=== PATIENT | female | born 1975 | race Hispanic/Latino ===

== ENCOUNTER 2018-09-24 04:10 | Emergency (ER) | payer OTHER ==
[~2018-09-24] VITALS: Ht 165.1 cm; Wt 86.6 kg
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
[2018-09-24] MEDS ORDERED: ENALAPRILAT IV INJ 1.25 MG/ML VIAL IV STA (04:17)
[2018-09-24] MEDS ORDERED: SODIUM CHLORIDE 0.9% 1000ML 1,000 ML IV STA (04:17)
[2018-09-24] MEDS ORDERED: CLONIDINE HCL 0.1 MG TAB PO ONE (04:30)
[2018-09-24 04:55] LABS: BASOPHILS # (AUTO) 0.1 (0.0-0.1); BASOPHILS % 0.7 % (0.0-1.0); EOSINOPHILS # (AUTO) 0.2 (0.0-0.4); HEMATOCRIT 36.6 % (34.2-44.1); HEMOGLOBIN 12.9 g/dL (12.0-16.0); LYMPHOCYTES # (AUTO) 2.9 (1.0-3.2); LYMPHOCYTES % 26.7 % (18.0-39.1); MEAN CORPUSCULAR HEMOGLOBIN 28.9 pg (28-32); MEAN CORPUSCULAR HGB CONC 35.2 g/dL (31-35); MEAN CORPUSCULAR VOLUME 81.9 fL (81-99); MONOCYTES # (AUTO) 0.9 (0.2-0.8); MONOCYTES % 7.9 % (4.4-11.3); NEUTROPHILS # (AUTO) 6.7 (2.1-6.9); NEUTROPHILS % 62.2 % (38.7-80.0); PLATELET COUNT 296 x10e3/uL (140-360); RED BLOOD COUNT 4.47 x10e6/uL (3.6-5.1)
[2018-09-24 05:02] LABS: BILIRUBIN,URINE NEGATIVE (NEGATIVE); CLARITY,URINE CLEAR (CLEAR); COLOR,URINE YELLOW (YELLOW); KETONES,URINE NEGATIVE (NEGATIVE); LEUKOCYTE ESTERASE ,URINE NEGATIVE (NEGATIVE); NITRITE,URINE NEGATIVE (NEGATIVE); PROTEIN,URINE DIPSTICK 3+ (NEGATIVE); URINE UROBILINOGEN 0.2 mg/dL (0.2 - 1)
[2018-09-24 05:14] LABS: EPITHELIAL CELLS,URINE FEW /LPF; TRANSITIONAL EPI CELLS,URINE FEW; WBC,URINE (MAN) 0-5 /HPF (0-5)
[2018-09-24 05:15] LABS: BACTERIA,URINE MODERATE /HPF; YEAST,URINE FEW
[2018-09-24 05:16] LABS: ALBUMIN 2.6 g/dL (3.5-5.0); ALBUMIN/GLOBULIN RATIO 0.6 (0.8-2.0); ANION GAP 15.2 mmol/L (8-16); CREATININE, SERUM 2.56 mg/dL (0.57-1.11); MAGNESIUM 2.4 MG/DL (1.3-2.1); POTASSIUM 4.2 mmol/L (3.5-5.1)
[2018-09-24] MEDS ORDERED: INSULIN DETEMIR 100 UNIT/ML PEN SQ ONE (05:30)
[2018-09-24] MEDS ORDERED: INSULIN REGULAR, HUMAN 100 UNIT/1 ML 3ML VIAL IV ONE (05:30)
[2018-09-24] MEDS ORDERED: INSULIN GLARGINE 100 UNITS/ML ML SQ SCH (05:45)
[2018-09-24 06:40] VITALS: BP 120/69
[2018-09-24] MEDS ORDERED: IBUPROFEN 200 MG TAB PO STA (06:53)
[2018-09-24] MEDS ORDERED: HYDROCODONE/APAP 5MG-325MG TAB PO ONE (07:00)
[2018-09-24] MEDS ORDERED: ONDANSETRON HCL 4 MG ORAL DISINTEGRATING TAB PO ONE (07:00)
--- NOTE | 2018-09-24 07:02 | NUR ---
PATIENT STATES PAIN TO BILATERAL LOWER EXTREMITIES, ALL PEDAL PULSES STRONG BILATERALLY.
--- NOTE | 2018-09-24 07:25 | NUR ---
WALKING ROUNDS WITH DORINA RN
== END 2018-09-24 07:35 | disposition home or self-care (01) ==
LOC: ER 04:10
DX: E11.65 Type 2 diabetes mellitus with hyperglycemia (principal); I10 Essential (primary) hypertension; N18.9 Chronic kidney disease, unspecified
CPT/HCPCS: 36415; 80053; 81001; 82948; 83735; 85025; 93005; 99284; J1815; J1817; J7030; Q0162

== ENCOUNTER 2024-06-30 14:00 | Emergency (ER) | payer BC, MEDICARE, OTHER ==
[~2024-06-30] VITALS: Ht 165.1 cm; Wt 101.2 kg
[~2024-06-30 14:00] MED LIST: ATORVASTATIN CA40 MG PO; CALCITRIOL0.5 MCG PO; CARVEDILOL25 MG PO; DICYCLOMINE HCL20 MG PO; FUROSEMIDE80 MG PO; MAG-OXIDE400 MG PO; NOVOLIN SQ; PANTOPRAZOLE SO40 MG PO; SEVELAMER CARB800 MG PO
[2024-06-30 14:38] LABS: BASOPHILS # (AUTO) 0.1 (0.0-0.1); BASOPHILS % 0.9 % (0.0-1.0); EOSINOPHILS # (AUTO) 0.3 (0.0-0.4); EOSINOPHILS % 2.5 % (0.0-6.0); HEMOGLOBIN 14.1 g/dL (12.0-16.0); LYMPHOCYTES # (AUTO) 3.8 (1.0-3.2); LYMPHOCYTES % 30.4 % (18.0-39.1); MEAN CORPUSCULAR HEMOGLOBIN 32.1 pg (28-32); MEAN CORPUSCULAR HGB CONC 32.8 g/dL (31-35); MEAN CORPUSCULAR VOLUME 97.9 fL (81-99); MONOCYTES % 8.2 % (4.4-11.3); NEUTROPHILS # (AUTO) 7.2 (2.1-6.9); NEUTROPHILS % 57.6 % (38.7-80.0); PLATELET COUNT 244 x10e3/uL (140-360); RED BLOOD COUNT 4.39 x10e6/uL (3.6-5.1); RED CELL DISTRIBUTION WIDTH 13.7 % (11.7-14.4); WHITE BLOOD COUNT 12.56 x10e3/uL (4.8-10.8)
[2024-06-30 14:47] LABS: ANION GAP 23.5 mmol/L (8-16); CALCIUM 10.2 mg/dL (8.4-10.2); CREATININE, SERUM 14.64 mg/dL (0.57-1.11); POTASSIUM 3.5 mmol/L (3.5-5.1)
[2024-06-30 15:25] VITALS: BP 104/62; PULSE 97
[2024-06-30] MEDS: SODIUM CHLORIDE 0.9% 500ML 500 ML IV STA (15:28)
[2024-06-30 17:00] VITALS: PULSE 93; RESP 16; TEMP 98.2; O2SAT 97
== END 2024-06-30 17:25 | disposition home or self-care (01) ==
LOC: ER 14:37
DX: R11.0 Nausea (principal); E86.0 Dehydration; R51.9 Headache, unspecified; I12.0 Hypertensive chronic kidney disease with stage 5 chronic kidney disease or end stage renal disease; E11.22 Type 2 diabetes mellitus with diabetic chronic kidney disease; E11.65 Type 2 diabetes mellitus with hyperglycemia; N18.6 End stage renal disease; Z99.2 Dependence on renal dialysis; E78.5 Hyperlipidemia, unspecified; R94.31 Abnormal electrocardiogram [ECG] [EKG]
CPT/HCPCS: 36415; 71045; 80048; 85025; 93005; 99284; J7040

== ENCOUNTER 2024-09-13 10:07 | Inpatient (IN) | payer MEDICARE ==
[~2024-09-13] VITALS: Ht 165.1 cm; Wt 99.8 kg
[2024-09-13 10:17] VITALS: TEMP 98.2
[2024-09-13 10:47] LABS: BASOPHILS # (AUTO) 0.1 (0.0-0.1); BASOPHILS % 0.5 % (0.0-1.0); EOSINOPHILS # (AUTO) 0.1 (0.0-0.4); EOSINOPHILS % 0.7 % (0.0-6.0); HEMATOCRIT 35.9 % (34.2-44.1); HEMOGLOBIN 11.3 g/dL (12.0-16.0); LYMPHOCYTES # (AUTO) 1.5 (1.0-3.2); LYMPHOCYTES % 10.1 % (18.0-39.1); MEAN CORPUSCULAR HEMOGLOBIN 31.9 pg (28-32); MEAN CORPUSCULAR HGB CONC 31.5 g/dL (31-35); MEAN CORPUSCULAR VOLUME 101.4 fL (81-99); MONOCYTES # (AUTO) 0.8 (0.2-0.8); NEUTROPHILS # (AUTO) 12.5 (2.1-6.9); NEUTROPHILS % 83.4 % (38.7-80.0); PLATELET COUNT 225 x10e3/uL (140-360); RED BLOOD COUNT 3.54 x10e6/uL (3.6-5.1); RED CELL DISTRIBUTION WIDTH 12.5 % (11.7-14.4); WHITE BLOOD COUNT 15.03 x10e3/uL (4.8-10.8)
[2024-09-13] MEDS: ONDANSETRON HCL INJ 2MG/ML 2ML 2 MG/ML VIAL IV STA (10:56)
[2024-09-13] MEDS: SODIUM CHLORIDE 0.9% 500ML 500 ML IV ONE (10:56)
[2024-09-13 11:22] LABS: ALANINE AMINOTRANSFERASE 16 IU/L (0-55); ALBUMIN 3.5 g/dL (3.5-5.0); ALBUMIN/GLOBULIN RATIO 0.8 (0.8-2.0); ALKALINE PHOSPHATASE 96 IU/L (40-150); ANION GAP 20.3 mmol/L (8-16); BILIRUBIN,TOTAL 1.1 mg/dL (0.2-1.2); BLOOD UREA NITROGEN 50 mg/dL (7-26); BUN/CREATININE RATIO 4 (6-25); CALCIUM 9.3 mg/dL (8.4-10.2); CARBON DIOXIDE 23 mmol/L (22-29); CHLORIDE 102 mmol/L (98-107); CREATININE, SERUM 13.87 mg/dL (0.57-1.11); EST GLOMERULAR FILTRATION RATE 3 ML/MIN (>=60); GLUCOSE 197 mg/dL (74-118); LIPASE 367 U/L (8-78); POTASSIUM 4.3 mmol/L (3.5-5.1); SODIUM 141 mmol/L (136-145); TOTAL PROTEIN 7.7 g/dL (6.5-8.1)
[2024-09-13] MEDS: Morphine 4mg INJECTION 4 MG/ML INJ IV ONE (12:01)
[2024-09-13 14:05] LABS: BILIRUBIN,URINE SMALL (NEGATIVE); CLARITY,URINE CLOUDY (CLEAR); COLOR,URINE YELLOW (YELLOW); GLUCOSE, URINE NEGATIVE (NEGATIVE); KETONES,URINE TRACE (NEGATIVE); LEUKOCYTE ESTERASE ,URINE MODERATE (NEGATIVE); NITRITE,URINE NEGATIVE (NEGATIVE); PH,URINE 7.5 (5 - 7); PROTEIN,URINE DIPSTICK >=300 (NEGATIVE); URINE UROBILINOGEN 0.2 mg/dL (0.2 - 1)
[2024-09-13 14:06] LABS: BACTERIA,URINE MANY /HPF; EPITHELIAL CELLS,URINE FEW /LPF; RBC,URINE >50 /HPF (0-5); WBC,URINE (MAN) >50 /HPF (0-5)
[2024-09-13] MEDS ORDERED: SODIUM CHLORIDE FLUSH 10 ML SYR INJ PRN (15:15)
[2024-09-13] MEDS: NIFEDIPINE CR 30 MG TAB PO SCH (15:30)
[2024-09-13] MEDS ORDERED: MAGNESIUM OXID400 M1 PO (15:36)
[2024-09-13] MEDS ORDERED: RENA-VITE TABL0.8 MG PO (15:37)
[2024-09-13 15:44] VITALS: PULSE 92; RESP 16
[2024-09-13] MEDS ORDERED: TRESIBA FL200 UNIT/1 (15:48)
[2024-09-13] MEDS ORDERED: OZEMPIC1 MG/0.71 (15:48)
[2024-09-13] MEDS ORDERED: NOVOLOG100 UNITS1 (15:49)
[2024-09-13 16:35] VITALS: BP 159/76; PULSE 94; RESP 17; TEMP 98.3; O2SAT 100
[2024-09-13 18:14] VITALS: BP 159/76; PULSE 94; RESP 17; TEMP 98.3; O2SAT 100
[2024-09-13 19:09] LABS: FERRITIN 1000.14 ng/mL (4.63-204.00)
[2024-09-13 19:26] LABS: FOLATE 15.6 ng/mL (7.0-15.4)
[2024-09-13 20:00] VITALS: BP 162/68; PULSE 94; RESP 18; TEMP 98.5; O2SAT 97
[2024-09-13] MEDS: TAMSULOSIN HCL 0.4 MG CAP PO SCH (20:55)
[2024-09-13 21:00] VITALS: BP 162/68; PULSE 94; RESP 18; TEMP 98.2; O2SAT 98
[2024-09-13] MEDS ORDERED: FAMOTIDINE 20 MG TAB PO PRN (21:30)
[2024-09-13] MEDS: SODIUM CHLORIDE 0.9% 1000ML 1,000 ML IV SCH (21:30)
[2024-09-13] MEDS ORDERED: HYDRALAZINE HCL 20 MG/ML VIAL IV PRN (21:30)
[2024-09-13] MEDS ORDERED: ACETAMINOPHEN 325 MG TAB PO PRN (21:30)
[2024-09-13] MEDS ORDERED: MELATONIN 5 MG TABLET PO PRN (21:30)
[2024-09-14] VITALS (9 sets, daily range): BP systolic 109–158; BP diastolic 58–84; PULSE 88–94; RESP 16–20; TEMP 98.2–98.8; O2SAT 95–100
[2024-09-14 06:59] LABS: BASOPHILS # (AUTO) 0.1 (0.0-0.1); BASOPHILS % 0.7 % (0.0-1.0); EOSINOPHILS # (AUTO) 0.4 (0.0-0.4); EOSINOPHILS % 3.5 % (0.0-6.0); HEMATOCRIT 31.5 % (34.2-44.1); HEMOGLOBIN 9.8 g/dL (12.0-16.0); LYMPHOCYTES # (AUTO) 3.1 (1.0-3.2); LYMPHOCYTES % 29.7 % (18.0-39.1); MEAN CORPUSCULAR HGB CONC 31.1 g/dL (31-35); MEAN CORPUSCULAR VOLUME 102.9 fL (81-99); MONOCYTES % 9.6 % (4.4-11.3); NEUTROPHILS # (AUTO) 5.9 (2.1-6.9); NEUTROPHILS % 56.2 % (38.7-80.0); PLATELET COUNT 211 x10e3/uL (140-360); RED BLOOD COUNT 3.06 x10e6/uL (3.6-5.1); RED CELL DISTRIBUTION WIDTH 12.6 % (11.7-14.4); WHITE BLOOD COUNT 10.47 x10e3/uL (4.8-10.8)
[2024-09-14 07:36] LABS: ALBUMIN 3.1 g/dL (3.5-5.0); ALBUMIN/GLOBULIN RATIO 0.9 (0.8-2.0); ANION GAP 18.9 mmol/L (8-16); CALCIUM 8.9 mg/dL (8.4-10.2); CREATININE, SERUM 13.48 mg/dL (0.57-1.11); POTASSIUM 3.9 mmol/L (3.5-5.1); TOTAL PROTEIN 6.6 g/dL (6.5-8.1)
[2024-09-14] MEDS ORDERED: TAMSULOSIN HCL 0.4 MG CAP PO SCH (09:00)
[2024-09-14] MEDS: INSULIN GLARGINE 100 UNITS/ML VIAL SQ SCH (09:58)
[2024-09-14] MEDS: GENTAMICIN SULFATE 15 GM CR TP SCH (10:56)
[2024-09-14] MEDS ORDERED: INSULIN ASPART 70/30 100 UNITS/ML VIAL SC SCH (12:00)
[2024-09-14] MEDS: INSULIN ASPART 70/30 100 UNITS/ML VIAL SC SCH (12:21)
[2024-09-14] MEDS: Morphine 4mg INJECTION 4 MG/ML INJ IV PRN (14:40)
[2024-09-14] MEDS: ONDANSETRON HCL INJ 2MG/ML 2ML 2 MG/ML VIAL IV PRN (15:24)
[2024-09-14] MEDS: SEVELAMER CARBONATE 800 MG TAB PO SCH (17:19)
[2024-09-14] MEDS: ATORVASTATIN 40 MG TAB PO SCH (20:34)
[2024-09-15 04:00] VITALS: BP 116/62; PULSE 89; RESP 18; TEMP 97.8; O2SAT 100
[2024-09-15 05:13] LABS: HEPATITIS B SURFACE AG (P) Negative (Negative)
[2024-09-15 05:56] LABS: BASOPHILS # (AUTO) 0.1 (0.0-0.1); BASOPHILS % 0.4 % (0.0-1.0); EOSINOPHILS # (AUTO) 0.3 (0.0-0.4); EOSINOPHILS % 2.9 % (0.0-6.0); HEMATOCRIT 28.8 % (34.2-44.1); HEMOGLOBIN 9.7 g/dL (12.0-16.0); LYMPHOCYTES # (AUTO) 2.3 (1.0-3.2); LYMPHOCYTES % 20.6 % (18.0-39.1); MEAN CORPUSCULAR HEMOGLOBIN 32.7 pg (28-32); MEAN CORPUSCULAR HGB CONC 33.7 g/dL (31-35); MONOCYTES % 9.2 % (4.4-11.3); NEUTROPHILS # (AUTO) 7.5 (2.1-6.9); NEUTROPHILS % 66.5 % (38.7-80.0); PLATELET COUNT 208 x10e3/uL (140-360); RED BLOOD COUNT 2.97 x10e6/uL (3.6-5.1); RED CELL DISTRIBUTION WIDTH 12.9 % (11.7-14.4); WHITE BLOOD COUNT 11.21 x10e3/uL (4.8-10.8)
[2024-09-15 06:32] LABS: ALBUMIN/GLOBULIN RATIO 0.9 (0.8-2.0); BILIRUBIN,TOTAL 0.7 mg/dL (0.2-1.2); CALCIUM 8.6 mg/dL (8.4-10.2); CREATININE, SERUM 13.43 mg/dL (0.57-1.11); TOTAL PROTEIN 6.5 g/dL (6.5-8.1)
[2024-09-15 08:00] VITALS: BP 116/62; PULSE 89; RESP 18; TEMP 97.8; O2SAT 100
[2024-09-15 08:10] VITALS: BP 139/67; PULSE 85; RESP 19; TEMP 98.6; O2SAT 100
[2024-09-15] MEDS ORDERED: FLOMAX0.4 MG PO (09:01)
[2024-09-15] MEDS ORDERED: CIPROFLOXACIN500 MG PO (09:01)
[2024-09-15] MEDS ORDERED: ONDANSETRON ODT4 MG PO (09:01)
[2024-09-15] MEDS: CALCITRIOL 0.25 MCG CAP PO SCH (10:19)
[2024-09-15] MEDS: MAGNESIUM OXIDE 400 MG TAB PO SCH (10:19)
[2024-09-15] MEDS: INSULIN LISPRO 100 UNIT/1 ML 3ML VIAL SQ SCH (10:32)
[2024-09-15 11:03] VITALS: BP 141/68; PULSE 88; RESP 17; TEMP 98; O2SAT 99
== END 2024-09-15 12:30 | disposition home or self-care (01) | DRG 690 ==
LOC: ER 10:13 → ERHOLD 15:16 → MED/SURG3 16:28
PROVIDERS: ADMIT Family Medicine Adult Medicine; ATTEND Family Medicine Adult Medicine
DX: N13.6 Pyonephrosis (principal); I12.0 Hypertensive chronic kidney disease with stage 5 chronic kidney disease or end stage renal disease; E11.22 Type 2 diabetes mellitus with diabetic chronic kidney disease; N18.6 End stage renal disease; Z99.2 Dependence on renal dialysis; R74.8 Abnormal levels of other serum enzymes; M54.9 Dorsalgia, unspecified; M19.90 Unspecified osteoarthritis, unspecified site; D63.1 Anemia in chronic kidney disease; E78.5 Hyperlipidemia, unspecified; E66.9 Obesity, unspecified; R31.29 Other microscopic hematuria; Z68.36 Body mass index [BMI] 36.0-36.9, adult; Z79.4 Long term (current) use of insulin; Z79.85 Long-term (current) use of injectable non-insulin antidiabetic drugs; Z90.49 Acquired absence of other specified parts of digestive tract; Z88.6 Allergy status to analgesic agent; Z88.8 Allergy status to other drugs, medicaments and biological substances; Z91.048 Other nonmedicinal substance allergy status; Z83.3 Family history of diabetes mellitus; Z82.49 Family history of ischemic heart disease and other diseases of the circulatory system
CPT/HCPCS: 36415; 72131; 74176; 80053; 81001; 82607; 82728; 82746; 82948; 83540; 83690; 84100; 84466; 84550; 84702; 85025; 85045; 86706; 87086; 87340; 99284; J0696; J1815; J2270; J2405; J7040

== ENCOUNTER 2024-12-16 12:42 | Emergency (ER) | payer MEDICARE ==
[~2024-12-16] VITALS: Ht 165.1 cm; Wt 99.8 kg
[~2024-12-16 12:42] MED LIST changes: +CIPROFLOXACIN500 MG PO; +FLOMAX0.4 MG PO; +MAGNESIUM OXID400 M1 PO; +NOVOLOG100 UNITS1; +ONDANSETRON ODT4 MG PO; +OZEMPIC1 MG/0.71; +RENA-VITE TABL0.8 MG PO; +TRESIBA FL200 UNIT/1
[2024-12-16 12:52] VITALS: TEMP 98.1
[2024-12-16 14:45] VITALS: PULSE 88; RESP 19
[2024-12-16] MEDS: TRAMADOL HCL 50 MG TAB PO ONE (15:47)
[2024-12-16] MEDS: KETOROLAC TROMETHAMINE 30 MG/ML VIAL IM STA (15:53)
[2024-12-16 16:48] VITALS: BP 128/76; PULSE 85; RESP 19; TEMP 98.2; O2SAT 98
== END 2024-12-16 16:37 | disposition home or self-care (01) ==
LOC: ER 13:18
DX: M54.50 Low back pain, unspecified (principal); N13.2 Hydronephrosis with renal and ureteral calculous obstruction; I12.0 Hypertensive chronic kidney disease with stage 5 chronic kidney disease or end stage renal disease; E11.22 Type 2 diabetes mellitus with diabetic chronic kidney disease; N18.6 End stage renal disease; Z99.2 Dependence on renal dialysis; M51.379 Other intervertebral disc degeneration, lumbosacral region without mention of lumbar back pain or lower extremity pain
CPT/HCPCS: 74176; 81025; 99283; J1885

== ENCOUNTER 2025-05-21 16:28 | Inpatient (IN) | payer MEDICARE ==
[~2025-05-21] VITALS: Ht 165.1 cm; Wt 99.8 kg
[2025-05-21 17:02] LABS: BASOPHILS % 0.6 % (0.0-1.0); EOSINOPHILS % 3.1 % (0.0-6.0); LYMPHOCYTES % 22.3 % (18.0-39.1); MONOCYTES % 8.1 % (4.4-11.3); NEUTROPHILS % 65.6 % (38.7-80.0); RED CELL DISTRIBUTION WIDTH 12.6 % (11.7-14.4)
[2025-05-21 17:06] LABS: INR 0.95
[2025-05-21 17:16] LABS: EST GLOMERULAR FILTRATION RATE 3 ML/MIN (>=60)
[2025-05-21] MEDS: METOPROLOL TARTRATE 25 MG TAB PO ONE (17:50)
[2025-05-21] MEDS ORDERED: SODIUM CHLORIDE FLUSH 10 ML SYR INJ PRN (20:00)
[2025-05-21 20:30] VITALS: PULSE 81; RESP 19; TEMP 98.9
[2025-05-21] MEDS: CARVEDILOL 12.5 MG TAB PO SCH (20:52)
[2025-05-21 21:00] VITALS: BP 167/77; PULSE 85; RESP 18; TEMP 98.7; O2SAT 100
[2025-05-21 21:22] VITALS: BP 169/77; PULSE 85; RESP 18; TEMP 98.7; O2SAT 100
[2025-05-21] MEDS: ATORVASTATIN 40 MG TAB PO SCH (21:28)
[2025-05-21] MEDS: HYDRALAZINE HCL 20 MG/ML VIAL IV PRN (21:29)
[2025-05-21] MEDS ORDERED: INSULIN LI100 UNIT/1 (22:03)
[2025-05-21] MEDS ORDERED: BASAGLAR K100 UNIT/1 (22:03)
[2025-05-21] MEDS ORDERED: RENA-VITE TABL0.8 MG (22:03)
[2025-05-21 22:10] VITALS: BP 169/77; PULSE 85; RESP 18; TEMP 98.7; O2SAT 100
[2025-05-21 23:29] VITALS: BP 109/59; PULSE 88; RESP 18; TEMP 98; O2SAT 98
[2025-05-22] VITALS (7 sets, daily range): BP systolic 134–186; BP diastolic 61–95; PULSE 83–90; RESP 17–20; TEMP 98.1–98.9; O2SAT 97–100
[2025-05-22] MEDS ORDERED: ACETAMINOPHEN 325 MG TAB PO PRN (04:00)
[2025-05-22] MEDS: ACETAMIN/BUTALBITAL/CAFFEINE TAB PO PRN (04:03)
[2025-05-22 05:37] LABS: BASOPHILS % 0.6 % (0.0-1.0); EOSINOPHILS % 3.0 % (0.0-6.0); LYMPHOCYTES % 23.4 % (18.0-39.1); MONOCYTES % 8.8 % (4.4-11.3); NEUTROPHILS % 63.9 % (38.7-80.0); RED CELL DISTRIBUTION WIDTH 12.9 % (11.7-14.4)
[2025-05-22 06:00] LABS: EST GLOMERULAR FILTRATION RATE 3.0 ML/MIN (>=60)
[2025-05-22] MEDS: SEVELAMER CARBONATE 800 MG TAB PO SCH (08:42)
[2025-05-22] MEDS: LOSARTAN POTASSIUM 25 MG TAB PO SCH ×2 (09:58→21:59)
[2025-05-22] MEDS ORDERED: DEXTROSE 50% SYRINGE 50 ML IV PRN (11:30)
[2025-05-22] MEDS: INSULIN LISPRO 100 UNIT/1 ML 3ML VIAL SQ SCH (12:23)
[2025-05-22] MEDS ORDERED: GENTAMICIN SULFATE 15 GM CR TP PRN (16:45)
[2025-05-22] MEDS: INSULIN GLARGINE 100 UNITS/ML VIAL SQ SCH (21:56)
[2025-05-23] VITALS (7 sets, daily range): BP systolic 121–160; BP diastolic 63–86; PULSE 72–92; RESP 16–20; TEMP 97.4–98.7; O2SAT 98–100
[2025-05-23] MEDS: EPOETIN ALFA-EPBX 10,000 UNIT/ML VIAL SC ONE (16:51)
[2025-05-23] MEDS: HEPARIN SOD (PORCINE) 1000 UNIT/ML SDV IV ONE (18:13)
[2025-05-24 05:49] LABS: EST GLOMERULAR FILTRATION RATE 3.0 ML/MIN (>=60)
[2025-05-24 07:35] LABS: HEPATITIS B SURFACE AB QUANT 167.0 mIU/mL (Immunity>10); HEPATITIS BE ANTIGEN Negative (Negative)
[2025-05-24 09:06] VITALS: BP 166/72; PULSE 83; RESP 20; TEMP 98.6; O2SAT 100
[2025-05-24 10:17] VITALS: BP 166/72; PULSE 83; RESP 20; TEMP 98.6; O2SAT 100
[2025-05-24 12:44] VITALS: BP 160/82; PULSE 79; RESP 20; TEMP 97.9; O2SAT 97
[2025-05-24] MEDS ORDERED: COZAAR25 MG PO (15:42)
[2025-05-24] MEDS ORDERED: COREG12.5 MG PO (15:42)
== END 2025-05-24 17:32 | disposition home or self-care (01) | DRG 304 ==
LOC: ER 16:53 → ERHOLD 19:51 → MED/SURG 21:04
PROVIDERS: ADMIT Internal Medicine; ATTEND Internal Medicine
PROC: 5A1D70Z Performance of Urinary Filtration, Intermittent, Less than 6 Hours Per Day (ICD-10-PCS; principal; 2025-05-21)
DX: I16.0 Hypertensive urgency (principal); N18.6 End stage renal disease; I12.0 Hypertensive chronic kidney disease with stage 5 chronic kidney disease or end stage renal disease; Z99.2 Dependence on renal dialysis; E11.22 Type 2 diabetes mellitus with diabetic chronic kidney disease; E11.65 Type 2 diabetes mellitus with hyperglycemia; E78.5 Hyperlipidemia, unspecified; I49.3 Ventricular premature depolarization; R00.2 Palpitations; J32.0 Chronic maxillary sinusitis; J32.3 Chronic sphenoidal sinusitis; Z79.4 Long term (current) use of insulin; Z90.49 Acquired absence of other specified parts of digestive tract; Z88.6 Allergy status to analgesic agent; Z88.8 Allergy status to other drugs, medicaments and biological substances; Z91.048 Other nonmedicinal substance allergy status; Z82.49 Family history of ischemic heart disease and other diseases of the circulatory system
CPT/HCPCS: 36415; 70450; 71045; 80053; 82550; 82948; 83735; 84484; 84702; 85025; 85610; 85730; 86706; 87350; 93005; 93306; 99285; J0360; J1644; J1815

== ENCOUNTER 2025-06-12 17:23 | Emergency (ER) | payer MEDICARE ==
[~2025-06-12] VITALS: Ht 165.1 cm; Wt 99.8 kg
[~2025-06-12 17:23] MED LIST changes: +BASAGLAR K100 UNIT/1; +COREG12.5 MG PO; +COZAAR25 MG PO; +INSULIN LI100 UNIT/1; +RENA-VITE TABL0.8 MG
[2025-06-12 17:44] VITALS: TEMP 98.4
[2025-06-12 18:26] LABS: BASOPHILS % 0.6 % (0.0-1.0); EOSINOPHILS % 2.2 % (0.0-6.0); LYMPHOCYTES % 21.3 % (18.0-39.1); MONOCYTES % 7.7 % (4.4-11.3); NEUTROPHILS % 67.7 % (38.7-80.0); RED CELL DISTRIBUTION WIDTH 13.2 % (11.7-14.4)
[2025-06-12 18:49] LABS: EST GLOMERULAR FILTRATION RATE 3.0 ML/MIN (>=60)
[2025-06-12 20:06] VITALS: PULSE 110; RESP 19
[2025-06-12] MEDS ORDERED: SODIUM CHLORIDE 0.9% 1000ML 1,000 ML ONE (20:18)
[2025-06-12] MEDS: SODIUM CHLORIDE 0.9% 1000ML 1,000 ML IV STA (20:21)
[2025-06-12 22:15] VITALS: BP 109/76; PULSE 104; RESP 14; TEMP 98; O2SAT 99
== END 2025-06-12 22:21 | disposition home or self-care (01) ==
LOC: ER 17:33
DX: R51.9 Headache, unspecified (principal); I12.0 Hypertensive chronic kidney disease with stage 5 chronic kidney disease or end stage renal disease; E11.22 Type 2 diabetes mellitus with diabetic chronic kidney disease; E11.65 Type 2 diabetes mellitus with hyperglycemia; N18.6 End stage renal disease; Z99.2 Dependence on renal dialysis; R42 Dizziness and giddiness; R53.81 Other malaise
CPT/HCPCS: 36415; 70450; 71045; 80053; 82550; 83690; 83880; 84484; 85025; 93005; 99284; J7030